=== PATIENT | female | born 1940 | race Caucasian/White ===

== ENCOUNTER 2023-08-29 10:55 | Inpatient (IN) ==
[2023-08-29 13:43] LABS: Hematocrit 37.1 % (35-45); Hemoglobin 12.4 g/dL (11.5-14.3); Mean Corpuscular Hemoglobin 30.3 pg (27-33); Mean Corpuscular Hgb Conc 33.5 g/dL (31-36); Mean Corpuscular Volume 90.7 fL (80-97); Mean Platelet Volume 8.2 fL (7.5-11.2); Platelet Count 164 10^3/uL (150-450); Red Blood Count 4.09 10^6/uL (3.63-4.92); Red Cell Distribution Width 13.7 % (12-17); White Blood Count 22.4 10^3/uL (3.8-11.8)
[2023-08-29 13:56] LABS: INR 1.1 (0.83-1.13)
[2023-08-29 14:19] LABS: ABS Basophils 0.1 10^3/uL (0.0-0.1); ABS Eosinophils 0.1 10^3/uL (0.0-0.5); ABS Lymphocytes 1.3 10^3/uL (1.0-4.8); ABS Monocytes 0.6 10^3/uL (0.0-0.9); ABS Neutrophils 20.3 10^3/uL (1.5-7.6); ABS Nucleated RBC 0.01 10^3/ul; Eosinophil % 0.6 %; Lymphocyte % 5.6 %; Nucleated Red Blood Cells % 0.1 %/100WBC (0.0-0.8)
[2023-08-29 16:03] LABS: Albumin/Globulin Ratio 1.7 (1-3); Calcium 8.3 mg/dL (8.6-10.3); Creatinine, Serum 1.16 mg/dL (0.51-0.95); Globulin 2.4 g/dL (2-4); Potassium 3.7 mmol/L (3.5-5.0); Total Protein 6.4 g/dL (6.4-8.9); eGFR CKD-EPI 46.2 (>60)
[2023-08-29] MEDS ORDERED: Vancomycin 1,000 MG VIAL IVPB ONE (17:30)
[2023-08-29] MEDS: Piperacillin/Tazobac 3.375 BAG 3.375 GM/100 ML BAG IV ONE (17:47)
[2023-08-29] MEDS: Vancomycin 1000 MG in NS 0.9% 250 ML IVPB ONE (17:47)
[2023-08-29] MEDS ORDERED: Iodixanol (CONTRAST) 320 MG/ML 100 ML SDV IV ONE (17:53)
[2023-08-29 18:33] LABS: C Reactive Protein 373.97 mg/L (<8.01)
[2023-08-29 19:02] LABS: High Sensitivity Troponin 1 Hr 33 pg/mL (<15)
[2023-08-29] MEDS: Clindamycin 900 MG/D5W BAG 900 MG/50 ML BAG IVPB ONE (20:17)
[2023-08-29] MEDS ORDERED: Vancomycin per Pharmacy 1 EA NOTE FOLLOW UP SCH (23:00)
[2023-08-29] MEDS: NS 0.9% 1000 ml BAG 1,000 ML IV ONE (23:21)
[2023-08-29] MEDS: cefTRIAXone 1 gm/50 mL D5W 1 GM/50 ML BAG IV SCH (23:21)
[2023-08-29] MEDS: Acetaminophen IV 1 GM/100ML 1,000 MG/100 ML BAG IV ONE (23:47)
[2023-08-30 01:51] LABS: Calcium 6.9 mg/dL (8.6-10.3); Creatinine, Serum 0.76 mg/dL (0.51-0.95); Potassium 3.3 mmol/L (3.5-5.0); eGFR CKD-EPI 76.7 (>60)
[2023-08-30] MEDS: Potassium Chlor 10 meq TAB PO ONE (04:02)
[2023-08-30] MEDS: Vancomycin 750 MG in NS 0.9% 250 ML IVPB SCH (06:16)
[2023-08-30] MEDS: Heparin 5000 UNITS/ML 1 mL VIAL SUBCUT SCH (06:16)
[2023-08-30 06:43] LABS: ABS Basophils 0.1 10^3/uL (0.0-0.1); ABS Eosinophils 0.1 10^3/uL (0.0-0.5); ABS Lymphocytes 1.1 10^3/uL (1.0-4.8); ABS Monocytes 0.7 10^3/uL (0.0-0.9); ABS Neutrophils 12.4 10^3/uL (1.5-7.6); Eosinophil % 0.7 %; Hemoglobin 11.1 g/dL (11.5-14.3); Lymphocyte % 7.7 %; Mean Corpuscular Hgb Conc 34.7 g/dL (31-36); Mean Corpuscular Volume 89.5 fL (80-97); Mean Platelet Volume 8.9 fL (7.5-11.2); Platelet Count 155 10^3/uL (150-450); Red Blood Count 3.57 10^6/uL (3.63-4.92); Red Cell Distribution Width 13.5 % (12-17); White Blood Count 14.4 10^3/uL (3.8-11.8)
[2023-08-30 07:59] LABS: Anion Gap 10 mmol/L (2-16); Blood Urea Nitrogen 20 mg/dL (6-24); CO2 Carbon Dioxide 24 mmol/L (22-32); Calcium 7.6 mg/dL (8.6-10.3); Chloride 97 mmol/L (101-111); Creatinine, Serum 0.67 mg/dL (0.51-0.95); Glucose 92 mg/dL (70-100); Sodium 131 mmol/L (135-145); eGFR CKD-EPI 85.6 (>60)
[2023-08-30 08:17] LABS: Urine Appearance Clear; Urine Bilirubin Negative (Negative); Urine Blood 2+ (Negative); Urine Color Light-Yellow; Urine Glucose Negative (Negative); Urine Ketones Trace (Negative); Urine Nitrite Negative (Negative); Urine Protein Trace (Negative); Urine Specific Gravity 1.019 (1.002-1.030); Urine Urobilinogen Negative (Negative); Urine pH 5.5 (5.0-8.0)
[2023-08-30 08:55] LABS: Urine Bacteria Absent /HPF (Absent); Urine Red Blood Cell 1+(3-5/hpf) /HPF (0-Trace); Urine Squamous Epithelial Cell Present /HPF (Absent); Urine White Blood Cell Trace(0-5/hpf) /HPF (0-Trace)
[2023-08-30] MEDS: Calcium Carb (TUMS) 500 mg CHEW TAB PO SCH (10:26)
[2023-08-30 10:31] LABS: Osmolality Serum 273 mOsm/kg (275-295)
[2023-08-30 10:32] LABS: Urine Osmo 306 mOsm/kg (150-1150)
[2023-08-30] MEDS: cefTRIAXone 1 gm/50 mL D5W 1 GM/50 ML BAG IV SCH (22:39)
[2023-08-31] MEDS ORDERED: Vancomycin Trough Check NOTE FOLLOW UP ONE (06:00)
[2023-08-31 06:37] LABS: ABS Lymphocytes 0.9 10^3/uL (1.0-4.8); ABS Monocytes 0.8 10^3/uL (0.0-0.9); ABS Neutrophils 9.9 10^3/uL (1.5-7.6); Eosinophil % 0.1 %; Hemoglobin 11.4 g/dL (11.5-14.3); Mean Corpuscular Hemoglobin 31.3 pg (27-33); Mean Corpuscular Hgb Conc 34.5 g/dL (31-36); Mean Corpuscular Volume 90.9 fL (80-97); Mean Platelet Volume 9.1 fL (7.5-11.2); Platelet Count 165 10^3/uL (150-450); Red Blood Count 3.64 10^6/uL (3.63-4.92); Red Cell Distribution Width 13.3 % (12-17); White Blood Count 11.7 10^3/uL (3.8-11.8)
[2023-08-31 08:20] LABS: Calcium 7.7 mg/dL (8.6-10.3); Creatinine, Serum 0.55 mg/dL (0.51-0.95); Potassium 3.9 mmol/L (3.5-5.0); Vancomycin Trough 5.9 mcg/mL; eGFR CKD-EPI 89.8 (>60)
[2023-08-31 11:36] LABS: C Reactive Protein 223.49 mg/L (<8.01)
[2023-08-31] MEDS: cefTRIAXone 1 gm/50 mL D5W 1 GM/50 ML BAG IV SCH (17:40)
[2023-08-31 17:59] VITALS: BP 108/52
== END 2023-08-31 21:30 | disposition home or self-care (01) | DRG 872 ==
LOC: ED 10:55 → EDHOLD 22:44 → MEDTELE 08-30 11:25
PROVIDERS: ADMIT Internal Medicine; ATTEND Internal Medicine